=== PATIENT | female | born 1995 | race American Indian/Alaskan Native ===

== ENCOUNTER 2017-08-14 21:47 | Emergency (ER) | payer BC, OTHER ==
[2017-08-14 21:53] VITALS: BMI 29.9
[2017-08-14 21:56] VITALS: O2SAT 100
[2017-08-14] MEDS ORDERED: DiphenhydrAMINE 50 mg/ml Inj IVP ONE (22:02)
[2017-08-14] MEDS ORDERED: Famotidine 20mg/50ml 20 MG/50 ML BAG IVPB STA (22:03)
[2017-08-14] MEDS ORDERED: Albuterol-Ipratrop 3 mg / 0.5 (3 ml) UD IH STA (22:08)
--- NOTE | 2017-08-14 22:20 | ED PDOC ---
Arrival/HPI - General Chief Complaint: Allergic Reaction Time Seen by Provider: 08/14/17 21:57 Historian: Patient - History of Present Illness Narrative History of Present Illness (Text): 08/14/17 22:02 22 year old female, with no significant past medical history and known drug allergy to aspirin, presents to the Emergency department complaining of swollen lips and wheezing since 8pm tonight. Due to her allergy to aspirin, patient informs asking for toradol for pain from her PMD. However, upon taking toradol tonight, patient soon developed hives, swelling of lips and wheezing. Patient informs worsening symptoms prompting her to present to the Emergency department. Patient denies any fever, chills, nausea, vomiting, diarrhea, abdominal pain, chest pain, shortness of breath or any other complaints. Patient presents to the Emergency department for medical evaluation. PMD: [place] Time/Duration: 1-3 hours Symptom Onset: Gradual Symptom Course: Unchanged Activities at Onset: Light Context: Home Past Medical History - Provider Review Nursing Documentation Reviewed: Yes - Travel History If Yes, travel location?: [place] - Infectious Disease Hx of Infectious Diseases: None - Tetanus Immunization Tetanus Immunization: Up to Date - Cardiac Hx Cardiac Disorders: No - Pulmonary Hx Asthma: Yes (seasonal) - Neurological Hx Neurological Disorder: No - HEENT Hx HEENT Disorder: No - Renal Hx Renal Disorder: No - Endocrine/Metabolic Hx Endocrine Disorders: No - Hematological/Oncological Hx Blood Disorders: No - Integumentary Hx Dermatological Disorder: No - Musculoskeletal/Rheumatological Hx Falls: No - Gastrointestinal Hx Gastrointestinal Disorders: No - Genitourinary/Gynecological Hx Genitourinary Disorders: No - Psychiatric Hx Psychophysiologic Disorder: No Hx Substance Use: No - Surgical History Hx Orthopedic Surgery: Yes (left broken arm with plates and screws.) - Anesthesia Hx Anesthesia: No - Suicidal Assessment Feels Threatened In Home Enviroment: No Family/Social History - Physician Review Nursing Documentation Reviewed: Yes Family/Social History: No Known Family HX Smoking Status: Never Smoked Hx Alcohol Use: Yes Frequency of alcohol use: Socially Hx Substance Use: No Allergies/Home Meds Allergies/Adverse Reactions: Allergies aspirin Allergy (Verified 08/14/17 21:54) URTICARIA coconut Allergy (Verified 08/14/17 21:54) RASH Home Medications: Home Meds Medication Instructions Recorded Confirmed Norgestimate-Ethinyl Estradiol 1 tab PO DAILY 09/22/13 09/22/13 [Trinessa Tablet] Review of Systems - Physician Review All systems were reviewed & negative as marked: Yes - Review of Systems Constitutional: Normal. absent: Fevers Eyes: Normal ENT: Other (Swelling of lips) Respiratory: Wheezing. absent: SOB Cardiovascular: Normal. absent: Chest Pain Gastrointestinal: Normal. absent: Abdominal Pain, Diarrhea, Nausea, Vomiting Genitourinary Female: Normal Musculoskeletal: Normal Skin: Other (Hives) Neurological: Normal Endocrine: Normal Hemo/Lymphatic: Normal Psychiatric: Normal Physical Exam Vital Signs Reviewed: Yes Vital Signs Temp Pulse Resp BP Pulse Ox 08/15/17 01:05 98.2 F 82 17 101/68 100 08/14/17 21:56 98.6 F 103 H 18 117/57 L 100 Temperature: Afebrile Blood Pressure: Normal Pulse: Tachycardic Respiratory Rate: Normal Appearance: Positive for: Well-Appearing, Non-Toxic, Comfortable Pain Distress: None Mental Status: Positive for: Alert and Oriented X 3 - Systems Exam Head: Present: Atraumatic, Normocephalic Pupils: Present: PERRL Extroacular Muscles: Present: EOMI Conjunctiva: Present: Normal Mouth: No: Normal Lips (Swollen lips) Neck: Present: Normal Range of Motion Respiratory/Chest: Present: Good Air Exchange, Wheezes (bilaterally ). No: Respiratory Distress, Accessory Muscle Use Cardiovascular: Present: Regular Rate and Rhythm, Normal S1, S2. No: Murmurs Abdomen: No: Tenderness, Distention, Peritoneal Signs Back: Present: Normal Inspection Upper Extremity: Present: Normal Inspection. No: Cyanosis, Edema Lower Extremity: Present: Normal Inspection. No: Edema Neurological: Present: GCS=15, CN II-XII Intact, Speech Normal Skin: Present: Warm, Dry, Normal Color. No: Rashes Psychiatric: Present: Alert, Oriented x 3, Normal Insight, Normal Concentration Medical Decision Making ED Course and Treatment: 08/14/17 22:02 Impression: 22 year old female presents to the Emergency department for swelling of lips, wheezing and hives. Differential Diagnosis included but are not limited to: Allergic reaction to toradol Plan: Allergic reaction -- Benadryl -- Albuterol -- Famotidine -- Solumedrol -- Reassess and disposition Prior Visits: Notes and results from previous visits were reviewed. Progress Notes: - Medication Orders Current Medication Orders: Discontinued Medications Albuterol/Ipratropium (Duoneb 3 Mg/0.5 Mg (3 Ml) Ud) 3 ml IH STAT STA Stop: 08/14/17 22:09 Last Admin: 08/14/17 22:41 Dose: 3 ml Diphenhydramine HCl (Benadryl) 25 mg IVP ONCE ONE Stop: 08/14/17 22:03 Last Admin: 08/14/17 22:41 Dose: 25 mg IVP Administration Document 08/14/17 22:41 IT (Rec: 08/14/17 22:41 IT [id number]) Charges for Administration # of IVP Administrations 1 Famotidine (Pepcid 20mg/50ml Premix) 20 mg in 50 mls @ 100 mls/hr IVPB STAT STA Stop: 08/14/17 22:32 Last Admin: 08/14/17 22:41 Dose: 100 mls/hr eMAR Start Stop Document 08/14/17 22:41 IT (Rec: 08/14/17 22:41 IT [id number]) Intravenous Solution Start Date 08/14/17 Start Time 22:41 Methylprednisolone (Solu-Medrol) 125 mg IVP ONCE ONE Stop: 08/14/17 22:03 Last Admin: 08/14/17 22:41 Dose: 125 mg IVP Administration Document 08/14/17 22:41 IT (Rec: 08/14/17 22:41 IT [id number]) Charges for Administration # of IVP Administrations 1 - Scribe Statement The provider has reviewed the documentation as recorded by the [employer]. All medical record entries made by the Scribe were at my direction and personally dictated by me. I have reviewed the chart and agree that the record accurately reflects my personal performance of the history, physical exam, medical decision making, and the department course for this patient. I have also personally directed, reviewed, and agree with the discharge instructions and disposition. Disposition/Present on Arrival - Present on Arrival Any Indicators Present on Arrival: No History of DVT/PE: No History of Uncontrolled Diabetes: No Urinary Catheter: No History of Decub. Ulcer: No History Surgical Site Infection Following: None - Disposition Have Diagnosis and Disposition been Completed?: Yes Diagnosis: Drug allergy Disposition: HOME/ ROUTINE Disposition Time: 01:05 Condition: IMPROVED Discharge Instructions (ExitCare): Drug Allergy Prescriptions: predniSONE [predniSONE Tab] 20 mg PO TID #15 tab hydrOXYzine Pamoate [Vistaril] 25 mg PO QID #12 cap Referrals: Derian Zhou MD [Primary Care Provider] - Follow up with primary Forms: [facility] (Urdu), WORK NOTE
[2017-08-15 01:06] VITALS: BP 101/68; PULSE 82; RESP 17; TEMP 98.2
== END 2017-08-15 01:06 | disposition home or self-care (01) ==
LOC: ED 21:47
DX: T78.40XA Allergy, unspecified, initial encounter (principal); T39.8X5A Adverse effect of other nonopioid analgesics and antipyretics, not elsewhere classified, initial encounter; Y92.89 Other specified places as the place of occurrence of the external cause
CPT/HCPCS: 96374; 96375; 99283; J1200; J2930